=== PATIENT | female | born 1935 | race Caucasian/White ===

== ENCOUNTER 2018-02-19 20:11 | Inpatient (IN) | payer OTHER ==
[2018-02-19] MEDS ORDERED: HYDROmorphONE/DILAUDID 2 MG/ML INJ IVP ONE ×2 (20:45→21:53)
--- NOTE | 2018-02-19 21:04 | EDPHY ---
H & P Time Seen by Provider: 02/19/18 21:03 HPI/ROS: Chief complaint. Fall HPI. 82-year-old female drinking alcohol tonight tripped and fell on stairs injuring her right shoulder. Did not strike her head or lose consciousness. No neck pain. Increased pain with range of motion of the right shoulder. No previous injury to this area. Denies chest discomfort or trouble breathing. No abdominal pain. ROS Constitutional. no fever/chills, no weakness Eyes. no problems with vision ENT. no sore throat, no nasal drainage Cardiovascular. no chest pain Respiratory. no shortness of breath, no cough Abdominal. no abdominal pain, no nausea/vomiting, no diarrhea . no problems urinating MS. Right shoulder pain Skin. no rash Lymph. no swollen glands Neuro. no headache, no dizziness, no difficulty walking or with speech Past Medical/Surgical History: Hypertension, pelvic fracture, alcoholism, hypocalcemia, hyponatremia Social History: , nonsmoker, recent alcohol Smoking Status: Never smoked Physical Exam: General Appearance: Alert well-developed female moderate distress vital signs are stable Eyes: Pupils equal and round no pallor or injection. ENT, Mouth: Mucous membranes are moist. Respiratory: There are no retractions, lungs are clear to auscultation. Cardiovascular: Regular rate and rhythm. Gastrointestinal: Abdomen is soft and nontender, no masses, bowel sounds normal. Neurological: Awake and alert, sensory and motor exams grossly normal. Skin: Warm and dry, no rashes. Musculoskeletal: Neck is supple nontender. Extremities pain just below the right shoulder. No evidence for dislocation. Elbow wrist are normal. Distal motor vascular sensitivity is intact Psychiatric: Patient is oriented X 3, there is no agitation. Constitutional: Initial Vital Signs Temperature (C) 36.6 C 02/19/18 20:16 Heart Rate 96 02/19/18 20:16 Respiratory Rate 16 02/19/18 20:16 Blood Pressure 210/95 H 02/19/18 20:16 O2 Sat (%) 95 02/19/18 20:16 O2 Delivery Mode Room Air Allergies/Adverse Reactions: aspirin Allergy (Verified 02/19/18 20:15) Home Medications: Medication Instructions Recorded Hydrochlorothiazide [HCTZ (*)] 02/19/18 Metoprolol Succinate 02/19/18 Quinapril HCl [Accupril 5 mg] 02/19/18 Medical Decision Making - Diagnostics Imaging Results: Imaging Impressions Shoulder X-Ray 02/19/18 20:20 Impression: Impacted displaced right humeral head and neck fracture Procedures: IV normal saline. Dilaudid for pain. Coaptation splint and sling Patient is unable to ambulate get out of bed. She has many reasons that she feels she can't go home is such as multiple stairs at her residence and no one to care for her. She and I discussed possibility of needing to go to correction facility for rehab. I consulted and discussed case with Dr. Eduardo Adams, orthopedist Stool see the patient in the morning I consulted discussed case with Dr. Salazar, hospitalist who agrees to the admission ED Course/Re-evaluation: Patient remained stable. Patient and I discussed imaging study results, treatment plan including importance of follow-up and further evaluation. She expresses understanding and agreement Differential Diagnosis: I considered fracture and dislocation. Patient has a humeral head and neck fracture. Patient appears intoxicated. really she is not able to care for herself at home. - Data Points Laboratory Results: Laboratory Results 02/19/18 20:30 02/19/18 20:30 02/19/18 02/19/18 20:30 20:30 WBC 8.72 10^3/uL 10^3/uL (3.80-9.50) RBC 4.18 10^6/uL 10^6/uL (4.18-5.33) Hgb 14.1 g/dL g/dL (12.6-16.3) Hct 39.9 % % (38.0-47.0) MCV 95.5 fL fL (81.5-99.8) MCH 33.7 pg pg (27.9-34.1) MCHC 35.3 g/dL g/dL (32.4-36.7) RDW 12.1 % % (11.5-15.2) Plt Count 298 10^3/uL 10^3/uL (150-400) MPV 10.0 fL fL (8.7-11.7) Neut % (Auto) 39.9 % % (39.3-74.2) Lymph % (Auto) 43.5 % % (15.0-45.0) Cataño % (Auto) 12.2 % % (4.5-13.0) Eos % (Auto) 2.8 % % (0.6-7.6) Baso % (Auto) 1.1 % % (0.3-1.7) Nucleat RBC Rel Count 0.0 % % (0.0-0.2) Absolute Neuts (auto) 3.49 10^3/uL 10^3/uL (1.70-6.50) Absolute Lymphs (auto) 3.79 10^3/uL H 10^3/uL (1.00-3.00) Absolute Monos (auto) 1.06 10^3/uL H 10^3/uL (0.30-0.80) Absolute Eos (auto) 0.24 10^3/uL 10^3/uL (0.03-0.40) Absolute Basos (auto) 0.10 10^3/uL 10^3/uL (0.02-0.10) Absolute Nucleated RBC 0.00 10^3/uL 10^3/uL (0-0.01) Immature Gran % 0.5 % % (0.0-1.1) Immature Gran # 0.04 10^3/uL 10^3/uL (0.00-0.10) Sodium 127 mEq/L L mEq/L (135-145) Potassium 3.2 mEq/L L mEq/L (3.5-5.2) Chloride 86 mEq/L L mEq/L (97-110) Carbon Dioxide 24 mEq/l mEq/l (22-31) Anion Gap 17 mEq/L H mEq/L (8-16) BUN 10 mg/dL mg/dL (7-23) Creatinine 0.6 mg/dL mg/dL (0.6-1.0) Estimated GFR > 60 Glucose 111 mg/dL H mg/dL (70-100) Calcium 9.3 mg/dL mg/dL (8.5-10.4) Ethyl Alcohol 141 mg/dL H mg/dL (0-10) Medications Given: Discontinued Medications Hydromorphone HCl (Dilaudid) 1 mg IVP EDNOW ONE Stop: 02/19/18 20:46 Last Admin: 02/19/18 20:51 Dose: 1 mg Hydromorphone HCl (Dilaudid) 1 mg IVP EDNOW ONE Stop: 02/19/18 21:54 Last Admin: 02/19/18 22:11 Dose: 1 mg Departure - Departure Disposition: [facility] Clinical Impression: Humerus head fracture Qualifiers: Encounter type: initial encounter Fracture type: closed Laterality: right Qualified Code(s): S42.291A - Other displaced fracture of upper end of right humerus, initial encounter for closed fracture Condition: Fair
[2018-02-19] MEDS ORDERED: ACETAMINOPHEN 325 MG TAB PO PRN (23:01)
[2018-02-19] MEDS ORDERED: ONDANSETRON 4 MG/2 ML VIAL IVP PRN (23:01)
[2018-02-19 23:03] LABS: PLATELET COUNT 298 10^3/uL (150-400)
[2018-02-19] MEDS ORDERED: NS 1,000 ML IV SCH (23:15)
[2018-02-20 00:36] LABS: INR 0.96 (0.83-1.16)
[2018-02-20] MEDS: HYDROCODONE/APAP 5/325 TAB PO PRN ×4 (01:24→19:53)
[2018-02-20] MEDS: THIAMINE HCL 100 MG TAB PO SCH ×3 (01:33→11:10)
[2018-02-20] MEDS ORDERED: LORazepam 1 MG/0.5 ML UDSYR PO PRN (05:33)
[2018-02-20] MEDS ORDERED: PROTOCOL MAGNESIUM 1 DOSE IV PRN (05:40)
[2018-02-20] MEDS ORDERED: PROTOCOL POTASSIUM 1 DOSE MISC PRN (05:40)
[2018-02-20] MEDS ORDERED: PROTOCOL K PHOSPHATE 1 DOSE IV PRN (05:40)
--- NOTE | 2018-02-20 06:33 | GHP ---
[f rep st] HISTORY AND PHYSICAL DATE OF ADMISSION: 02/19/2018 SOURCE: Patient provides history, appears is a fair historian. Daughter at bedside and supplements detail. CHIEF COMPLAINT: Right arm pain and fall. HISTORY OF PRESENT ILLNESS: This is a very pleasant 82-year-old female, who goes by Cortney who presen ts to the emergency department in the evening following a mechanical fall. Patient reports that she was coming up the stairs from her basement into the kitchen when she had a mechanical fall, tripping on the top step which she states is just 0.25 inch taller than the rest of the stairs. The patient r eports that she fell forward hitting the left side of her head on the counter. She denies any loss o f consciousness. No headache. No acute changes in vision. Patient did have immediate right arm basim n and presented to the Emergency for further evaluation. Patient denies any numbness, tingling. No focal deficits, but she has severe sharp pains in her right arm with any kind of movement. The patient lives alone in her home. She is . She has good family support from her daughter who is at bedside. The patient also appeared to be having some increased work of breathing and had n oted 3-week history of worsening lower extremity edema bilaterally. She had also noted some abdomina l distention without any abdominal pain. Upon further review of history, it is noted patient has a h istory of alcohol dependence, drinking up to a bottle of wine per day. The patient states she has be en trying to cut back to 3/4 bottle per day and spreads it out over the whole core strength, sipping on a glass filled with ice. The patient does occasionally become tremulous in the mornings per the adams combs, but denies any history of DTs. The patient was admitted several years ago following similar mechanical fall by same mechanism with pubic rami fracture that required transitional care in [facility]. REVIEW OF SYSTEMS: GENERAL: No fevers, chills. SKIN: The patient does report abrasion to her left eye and moravian following her fall. No acute rashes or sores. ENT: No nasal discharge. No sore th roat. EYES: Patient without any acute changes in vision. She does have macular degeneration, worse on the right than the left. CARDIOVASCULAR: No chest pain or palpitations. RESPIRATORY: Positive for dyspnea. No orthopnea reported. No cough. GI: No nausea, vomiting, or abdominal pain. Torrey nt does report increasing abdominal girth. : No dysuria or hematuria. MUSCULOSKELETAL: Right ar m pain, severe, some arthritis. NEURO: The patient denies any numbness or tingling in her extremiti es. She denies any headache. PSYCH: The patient without any anxiety or depression. No SI or HI. Remainder of review of systems negative except as noted above. ALLERGIES: To aspirin. HOME MEDICATIONS: HCTZ, metoprolol-XL, Accupril. PAST MEDICAL HISTORY: Significant for benign essential hypertension, macular degeneration bilaterall y, diverticulosis, hypocalcemia, hyponatremia in 2016, history of pubic ramus fracture, alcohol depen dence with a previous history of uncomplicated withdrawal. No DTs. PAST SURGICAL HISTORY: Significant for intra-ocular injections. Otherwise, none. FAMILY HISTORY: Mother due to PE. Multiple family members with alcohol dependence. Diana t with 2 brothers due to sudden cardiac which patient assumes to be a stroke, who were in their 40s when this occurred. SOCIAL HISTORY: Patient lives alone. She does not smoke or use any illicit drugs. She does, howeve r drink wine and admits physical dependence. She drinks approximately previously a bottle per day sp read out over the course of the day and has cut back to 3/4 bottle per her report. Patient was kavon mplative, but not currently prepared to quit drinking. CORE STATUS: DNR DNI. PHYSICAL EXAM: VITAL SIGNS: Initial blood pressure 210/95, heart rate 96, respiratory rate 16, O2 s aturation is 95% on room air with temperature 36.6. Vitals currently available blood pressure 125/53 , heart rate of 94, up from 60 to 69, respiratory rate 17, O2 saturation 97% on 2 L by nasal cannula with a temperature 36.6. GENERAL: No acute distress, pleasant, obese, elderly female who appears yo home than stated age, is lying quietly in bed. While talking, she does have notable increased work of breathing, but is only with talking. She is able still to complete sentences. She does not have any resting increased work of breathing otherwise. Daughter is at bedside. HEAD: Normocephalic. S he has a contusion to her left moravian and also extending over the eyelid. EYES: Extraocular muscles are intact. Pupils equal, round, slightly decreased reactivity to light bilaterally, but symmetric. No scleral icterus or conjunctival injection. ENT: Mucous membranes appear moist. No nasal disch arge. No pharyngeal erythema. Dentition intact. NECK: Supple. Trachea midline. CARDIOVASCULAR: Regular rate and rhythm, with no murmurs, rubs, or gallops appreciated. No chest wall tenderness to palpation. RESPIRATORY: Again, increased work of breathing with talking diminished bibasilarly. N o wheezes or rhonchi. ABDOMEN: Obese, soft, nontender to palpation. : No Jones in place. No sheth prapubic tenderness to palpation. EXTREMITIES: Patient with 3+ pitting edema bilateral lower extrem ities. Limited pedal pulse assessment secondary to edema. NEURO: Cranial nerves 2-12 are intact sy mmetric bilaterally with limited exam of the right shoulder. She otherwise moves her lower extremiti es with generalized deconditioning and weakness. Her right arm is in a sling. NEURO: Cranial nerve s 2-12 intact symmetric bilaterally. She has sensation in her right hand. PSYCH: The patient does appears just slightly anxious, but she is very pleasant and cooperative otherwise. LABORATORY STUDIES: WBC is 8.72, H and H 14.1 and 39.9, MCV 95.5, platelet count is 298, no bands. PT is 13.0, INR 0.96, PTT is 28.6. Sodium is 127, potassium 3.2, chloride is 86, CO2 24, anion gap 17, BUN 10, creatinine 0.6. GFR grea ter than 60, glucose 110, calcium is 9.3, phosphorus 2.7, magnesium 1.4, total bilirubin is 1.5, conj ugated bilirubin 0.4, ALT is 41, AST is 42, alkaline phosphatase is 72, total protein 7.5, albumin is 4.2. TSH is 2.73. Alcohol level is 141. Shoulder x-ray image and report reviewed myself shows impacted displaced right humeral head and neck fracture. ASSESSMENT AND PLAN: A pleasant 82-year-old female with past medical history significant for hyperte nsion, obesity, alcohol dependence, presents to Emergency Department following a mechanical fall with right arm pain. 1. Right humeral head fractures, displaced. Dr. Peña with Orthopedic Surgery was consulted from the Emergency Department. Will plan to see the patient this morning. I have not made her n.p.o. at this point, as she does have some electrolyte derangements and I do not suspect that she will need a ny immediate intervention. Will await his recommendations. She is currently in a sling. She has be en receiving [place] and Tylenol p.r.n. for her pain, but this has appeared to be inadequate and patien t complaining of severe pain. We will increase to addition of Dilaudid for breakthrough pain. Loraz epam has been ordered with her history of alcohol dependence in mind, but this may also assist with s ome of her spasming pain. She is on a pulse ox and will need to monitor her closely. 2. Fall with head injury. Patient did not report her head injury initially to the ER. At this poin t neurologic exam is not significantly focal, but will monitor her closely and have low threshold for CT scan. I did discuss with the patient obtaining this in the morning. However, she adamantly refu sed complaining that her right arm pain is so severe she does not want to move. She is agreeable to scan if her mentation or neurologic status does change. 3. Dyspnea. The patient with obvious increased work of breathing during the interview, although she does deny any shortness of breath. She does have 3+ pitting edema as well as some signs of ascites on abdominal exam. She does have a history of chronic alcohol dependence with wine, so it is possibl e also that this could be related to edema and will also consider chest x-ray, but patient has not humphreys d any episodes of hypoxia. 4. Edema as noted above. 5. Benign essential hypertension. Blood pressures at this time are acceptable and within normal ran ge. For now, given the patient will be receiving Ativan and narcotics will hold off on her antihyper tensive for now. We may need to consider addition of Lasix or spironolactone pending further evaluat ion of suspected cirrhosis. 6. Obesity with a body mass index of 34.5. Monitor in's and out's given patient's edema. 7. Macular degeneration. Fall precautions. 8. Hyponatremia with hypochloridemia and multiple other electrolyte disturbances are likely related to patient's alcohol dependence. Plan to replace her sodium, potassium, magnesium, monitor phosphoru s. 9. Alcohol dependence. 10. Fluid, electrolyte, nutrition. Patient is tolerating oral intake adequately. We will not add a ny intravenous fluids, particularly in setting of increased lower extremity edema. Electrolyte repla cement as noted above. Cardiac diet in place. 11. Prophylaxis. SCDs. Holding anticoagulation pending surgical evaluation. 12. Core status is DNR DNI. 13. Disposition. The patient has been admitted to observation at this time. Pending further evalua tion of patient's edema and dyspnea she may require additional hospital stay and workup. Also pendin g Orthopedic recommendations regarding her right shoulder. May also need to assess length of patient 's hospital stay. Will await recommendations. /[id number]/MODL
[2018-02-20] MEDS ORDERED: MAGNESIUM SULF 2 GM/WATER 50 ML IV ONE (07:49)
[2018-02-20] MEDS ORDERED: ENOXAPARIN 40 MG/0.4 ML SYR SC SCH (09:00)
[2018-02-20] MEDS ORDERED: POTASSIUM CL 10 MEQ TAB PO ONE (09:01)
[2018-02-20] MEDS: FOLIC ACID 1 MG TAB PO SCH ×2 (09:08→11:10)
[2018-02-20] MEDS: MULTIVITAMINS 1 EACH TAB PO SCH ×2 (09:08→11:10)
[2018-02-20] MEDS ORDERED: POTASSIUM Cl (KCl) 100 ML IV SCH (09:15)
[2018-02-20] MEDS: POTASSIUM Cl (KCl) 10 MEQ in NS 100 ML IV SCH ×3 (09:29→13:24)
--- NOTE | 2018-02-20 09:58 | GCON ---
[f rep st] CONSULTATION CHIEF COMPLAINT: Status post fall to right lower extremity. HISTORY OF PRESENT ILLNESS: Patient is a pleasant 82-year-old female who presented to the ED yesterday evening, 02/19/2018, after falling while coming up the stairs from her basement into the kitchen. She fell forward, hitting the left side of her head on the counter. She denies any loss of consciousness or headache. Patient does have a history of chronic blurred vision and states there is no change in that vision. She presented to the ED with also concerns of right arm pain, which is what we have been consulted on. She had difficulty moving the right upper extremity at the time of admission. X-rays were performed, which showed a humeral neck fracture, and she was placed in a sling and made nonweightbearing to the affected area. She currently denies any abnormal numbness, tingling, change in heat or color to this extremity, loss of distal range of motion. Patient has severe pain to the right shoulder and has been compliant in her sling. In the past month, patient has had an approximate 3-week history of worsening bilateral lower extremity edema, which her daughter has stated is due to a medication which she is on. The daughter states that her mother has been decreasing this medication with the hopes of decreased edema, but she does also note some abdominal distention without any pain during today's visit. PAST MEDICAL HISTORY: Pertinent for benign essential hypertension, macular degeneration bilaterally, diverticulosis, hypocalcemia, hyponatremia in 2016, history of pubic rami fracture with a similar mechanism of fall which resulted in her being in a retirement facility, history of alcohol dependence with a previous history of uncomplicated withdrawal. No history of delirium tremens. PAST SURGICAL HISTORY: Pertinent for intraocular injections. ALLERGIES: Aspirin. MEDICATIONS: Home medications: Hydrochlorothiazide, metoprolol XL, and Accupril. SOCIAL HISTORY: Patient is a regular drinker with a history of alcohol dependence, drinking up to a bottle of wine per day. According to she and her daughter, she has been trying to cut back to 3/4 of a bottle per day. Patient is . Lives alone at home. She does have good family support from her daughter, who is at the bedside this morning. REVIEW OF SYSTEMS: Otherwise, 10-point review of systems is negative except for as stated above. FAMILY HISTORY: Mother due to pulmonary embolism. Multiple family members with alcohol dependence. History of cardiovascular disease with brothers who were in their 40s when this occurred. PHYSICAL EXAMINATION: GENERAL: Patient is alert and oriented, able to respond appropriately to questions, moderate distress due to severe pain in her shoulder. HEENT: She has ecchymosis noted over her left superior orbit with no evidence of abnormal bleeding, oozing, discharge, change in heat or color around the area. EOMs intact. PERRLA. Moist buccal mucosa. Patent nares. Hearing intact. NECK: Soft and supple. No lymphadenopathy. Negative Lhermitte. Negative Spurling. CV: Regular rate and rhythm. LUNGS: Nonlabored breathing. No diaphoresis. EXTREMITIES: Focalized exam of bilateral upper extremities - Right shoulder in sling. TTP over proximal humerus with edema. No erythema, ecchymosis, or calor noted. Comp's soft. Limited AROM of right shoulder due to severe pain to the patient. Unable to fully assess distal strength of the patient due to severe distress, is able to actively flex/extend her right elbow and wrist. DNVI bilaterally in her upper extremities, including full Axillary motor/sensory function. Able to make a full fist bilaterally. Gross sensation intact bilaterally in her upper extremities with no focal deficits and brisk cap refill noted. 3+ nonpitting edema bilaterally in her lower extremities with calves soft and supple and nontender to palpation with negative bilateral Enio' s. X-rays: 3 views of her right shoulder show a comminuted and displaced right humeral neck fracture with mild angulation. ASSESSMENT: Closed, displaced and angulated, right proximal humerus fracture. PLAN: We continue to recommend patient remain in sling, NWB RUE, non-op care rec'd at this time. F/U in clinic in 1 week for repeat XRs and exam. Pain medications prn for symptoms. No smoking, avoid NSAIDs. DVT prophylaxis: continue plan per hospitalists. We will continue to monitor the patient and appreciate the consultation; please call with any questions. She was seen/discussed with and note edited by Dr. Peña. /[id number]/MODL MTDD
[2018-02-20] MEDS: HYDROmorphONE/DILAUDID 2 MG/ML INJ IVP PRN ×3 (11:09→19:49)
[2018-02-20] MEDS ORDERED: QUINAPRIL HCL 20 MG PO SCH (11:45)
--- NOTE | 2018-02-20 11:45 | HOSPPROG ---
Hospitalist Progress Note Assessment/Plan: Humeral head fracture - appreciate ortho consult, no operative intervention planned. -pain control, requiring IV dilaudid -cont ortho splint -PT/OT to assess mobility issues -outpt f/u with ortho in 2 weeks AHRF - dyspnea and hypoxemia this am -check CXR, bnp -low threshold for ABG if tachypnea persists Closed head injury - check head CT now given age and etoh hx Etoh dependence - sounds like she drinks 1.7 L of wine per day and she has no plan to quit drinking -give wine BID to prevent w/d, may require TID Hypertension - cont Metoprolol, Quinapril, hold HCTZ Hyponatremia - improved with NS, cont gentle IV hydration, follow -hold HCTZ for now Hypomagnesemia - replacement protocol ordered DVT PPLX - defer pharm until CT done, SCD's for now Dispo - change to inpt for further management of acute fracture including acute PT/OT and further evaluation of hypoxemia High risk for worsening medical comorbidities Subjective: Pt c/o severe pain in her right arm. Denies CP. She is tachypneic , possibly pain response. No fevers. She drinks 1.7 L bottle of wine daily, last drink ~6pm last night. No prior seizures. Objective: Vital Signs Temp Pulse Resp BP Pulse Ox 36.9 C 89 20 158/73 H 98 02/20/18 08:00 02/20/18 11:26 02/20/18 11:26 02/20/18 11:26 02/20/18 11:26 Laboratory Results 02/20/18 05:47 02/19/18 02/20/18 02/21/18 05:59 05:59 05:59 Intake Total 600 Output Total 250 350 Balance 350 -350 PT 13.0 SEC (12.0-15.0) 02/19/18 21:00 INR 0.96 (0.83-1.16) 02/19/18 21:00 - Physical Exam Constitutional: uncomfortable Eyes: PERRL Ears, Nose, Mouth, Throat: moist mucous membranes Cardiovascular: tachycardia Respiratory: no respiratory distress, reduced air movement Gastrointestinal: normoactive bowel sounds, soft, non-tender abdomen Skin: warm Musculoskeletal: other (right arm immobilized, +radial pulses, ext warm, well perfused) Neurologic: AAOx3 Psychiatric: interacting appropriately ICD10 Worksheet Patient Problems: Problems Problem Status Onset Humerus head fracture Acute Altered mental status Acute Expressive aphasia Acute Hyponatremia Acute Hypertension Chronic Pubic ramus fracture Chronic
[2018-02-20] MEDS ORDERED: NS W/ 20 KCl/L 1,000 ML IV SCH (12:00)
[2018-02-20] MEDS: METOPROLOL TARTRATE 100 MG TAB PO SCH (12:59)
[2018-02-20] MEDS: LISINOPRIL 20 MG TAB PO SCH (12:59)
--- NOTE | 2018-02-20 14:53 | PDMN ---
Medical Necessity Medical necessity: dyspnea and hypoxemia this am. c/o pain in arm this am., hx ETOH abuse: further PT, OT, CT of head ( pt hit head when she fell) - monitoring of poss W/D > 2 midnights of further monitoring, eval and tx needed. Pt receiving IV fluids, IV pain,
--- NOTE | 2018-02-20 16:35 | ASMTCMCOM ---
CM Note CM Note Notes: Pt in for humerus fracture after a fall at home. Pt also hit her head. Pt had been drinking when she fell, H&P indicates pt drinks a bottle of wine daily. Pt currently has no interest in quitting alcohol and is receiving wine here, CIWA ordered. OT/PT/ACIDIZER HELPER recs pending. Attempted to meet w pt but she was sleeping, pt dghtr in room. CM to follow tomorrow. Date Signed: 02/20/2018 04:34 PM Electronically Signed By:ASHISH Perdomo
--- NOTE | 2018-02-20 17:00 | ECHO ---
[email or web address] [address] [address] Main: [phone] Fax: Transthoracic Echocardiogram Name: SHAWNA LAWRENCE MR#: [id number] Study Date: 02/20/2018 Study Time: 01:37 PM Date of : 1935 Age: 82 year(s) Height: 154.9 cm (61 in.) Weight: 82.55 kg (182 lb.) BSA: 1.81 m2 Gender: Female Examination: Echo Indication: Image Quality: Adequate Contrast: Requested by: Elsi Howard BP: 158 mmHg/73 mmHg Heart Rate: Rhythm: Indication: Procedure Staff Teacher Private: Elba Luis [facility] Reading Physician: Claude Hernandez MD Requesting Provider: Conclusions: Normal size left ventricle. No LV hypertrophy. Normal global systolic LV function. The ejection fraction is visually estimated to be 60 %. Grade 1 diastolic dysfunction (abnormal relaxation). Trivial mitral valve regurgitation. The aortic valve is normal in appearance and function. Normal size ascending aorta measuring 3.3 cm. No pleural effusion. Measurements: Chambers Valvular Assessment AV/MV Valvular Assessment TV/PV Normal Normal Normal Name Value Range Name Value Range Name Value Range Ao Duyen (2D): 2.5 cm (1.4 cm-2.6 AV Vmax: 1.74 m/s (1 m/s-1.7 PV Vmax: 1.13 m/s (0.6 m/s-0.9 cm) m/s) m/s) IVSd (2D): 1.1 cm (0.6 cm-1.1 AV maxP mmHg ( - ) PV PGmax: 5 mmHg ( - ) cm) AV meanP mmHg ( - ) LVDd (2D): 4.2 cm (3.9 cm-5.3 LVOT Vmax: 1.18 m/s (0.7 m/s-1.1 cm) m/s) LVDs (2D): 2.8 cm (2.1 cm-4 BREE (Vmax): 1.9 cm2 ( - ) cm) BREE (VTI): 2.2 cm ( - ) LVPWd (2D): 1.1 cm ( - ) MV E Vmax: 0.66 m/s ( - ) LVOTd 1.9 cm 1.9 cm mm MV A Vmax: 1.06 m/s ( - ) LVEF (BP): 66 % (>=55 %) MV E/A: 0.62 ( - ) Visual EF: 60 % MV PHT: 0.098 s ( - ) RVDd(2D): 3.3 cm (1.9 cm-3.8 MVA (PHT): 2.2 s ( - ) cmmm) Continued Measurements: Patient: SHAWNA LAWRENCE Study Date: 02/20/2018 Page 1 of 2 01:37 PM Chambers Valvular Assessment AV/MV Valvular Assessment TV/PV Name Value Name Value Name Value LADs: 3.8 cm MV DecTime: 310 m/s CVP (est.): 5 mmHg LADs Lon.2 cm MV E/E' Septal: 12.80 LA Area: 17.2 cm2 MV E/E' Lateral: 10.00 LA Volume: 47 ml LA Volume Index: 26.0 ml/m2 RA Area: 16.5 cm2 Additional Vessels Name Value Ao Ascendin.3 cm Findings: Left Ventricle: Normal size left ventricle. No LV hypertrophy. Normal global systolic LV function. The ejection fraction is visually estimated to be 60 %. No regional wall motion abnormality. Grade 1 diastolic dysfunction (abnormal relaxation). Right Ventricle: Normal size right ventricle. Normal RV function. Left Atrium: The left atrium is normal in size. Right Atrium: The right atrium is normal in size. Mitral Valve: The mitral valve is normal in appearance and function. Trivial mitral valve regurgitation. No mitral stenosis is present. Aortic Valve: The aortic valve is normal in appearance and function. No aortic valve stenosis is present. There is no aortic valve regurgitation. Tricuspid Valve: The tricuspid valve is normal in appearance and function. There is no significant tricuspid valve regurgitation. Pulmonic Valve: The pulmonic valve is normal in appearance and function. There is no pulmonic regurgitation seen. Aorta: The aorta is normal. Normal size aortic root measuring 2.5 cm. Normal size ascending aorta measuring 3.3 cm. IVC: IVC not well seen . Pericardium: No pericardial effusion. No pleural effusion. Exam Comments: Patient unable to lay on left side due to right arm fracture, unable to move at all. (No Signature Object) Patient: SHAWNA LAWRENCE Study Date: 02/20/2018 Page 2 of 2 01:37 PM [id number]
[2018-02-20] MEDS ORDERED: hydrALAZINE 25 MG TAB PO PRN (17:21)
[2018-02-20] MEDS ORDERED: IOPAMIDOL (ISOVUE 370) 100 ML BTL IV ONE (17:22)
[2018-02-20] MEDS ORDERED: WHITE WINE 120 ML BOTTLE PO SCH (18:00)
--- NOTE | 2018-02-20 19:12 | PDGENHP ---
History and Physical - Chief Complaint fall - History of Present Illness 82yo F admitted last night after sustaining a fall from standing. Briefly, patient states that she was walking upstairs carrying a bag in her L hand and a jar of jelly in her R. She reached the top of the stairs and lost her balance, falling forward onto her right side, striking her L face on the way down. She denies LOC, but at the time endorsed excruciating RUE pain. Her daughter, whom she lives with, was at home and immediately responded. EMS was called and she was subsequently brought here for evaluation. Injuries identified at the time of admission were a proximarl R humerus fx and a L eye hematoma. She was admitted to the medical service and has had evaluation per orthopedics. On my examination at this time, she c/o R shoulder pain but states that it is now better controlled than previous. She has no other complaints and has been OOB walking albeit with a lot of trouble 2/2 RUE pain. History Information - Allergies/Home Medication List Allergies/Adverse Reactions: aspirin Allergy (Verified 02/19/18 20:15) Home Medications: C/E/Zn/Cu/OM3/DHA/EPA/LUT/ZEAX [Preservision Areds 2 Softgel] 1 each PO BID [Last Taken Unknown] Hydrochlorothiazide [HCTZ (*)] 25 mg PO DAILY 02/20/18 [Last Taken Unknown] Metoprolol Tartrate [Lopressor 100 mg (*)] 100 mg PO DAILY 02/20/18 [Last Taken Unknown] Quinapril HCl [Accupril 40 MG] 40 mg PO DAILY 02/20/18 [Last Taken Unknown] I have personally reviewed and updated: family history, medical history, social history, surgical history Past Medical History: HTN, macular degeneration, diverticulosis, hypocalcemia, hyponatremia, EtOH abuse, Hx of pelvic fx 3yrs ago s/p fall. - Surgical History Reports: no pertinent surgical hx - Family History Additional family history: Hx of EtOH - Social History Smoking Status: Never smoked Alcohol Use: Heavy Additional social history: lives with daughter and BABEY Review of Systems Review of Systems: ROS: 10pt was reviewed & negative except for what was stated in HPI & below Physical Exam Physical Exam: Temp Pulse Resp BP Pulse Ox 36.9 C 76 18 151/82 H 100 02/20/18 16:00 02/20/18 17:34 02/20/18 17:34 02/20/18 17:34 02/20/18 17:34 O2 (L/minute) 2 Constitutional: no apparent distress, appears nourished, uncomfortable Eyes: PERRL, anicteric sclera, EOMI Ears, Nose, Mouth, Throat: hearing normal, ears appear normal, no oral mucosal ulcers, poor dentition, dry mucous membranes Cardiovascular: regular rate and rhythym, no murmur, rub, or gallop, No edema Respiratory: no respiratory distress, no rales or rhonchi, clear to auscultation , other (no crepitus, no step offs or pain to chest palpation. ) Gastrointestinal: normoactive bowel sounds, soft, non-tender abdomen, no palpable masses Genitourinary: no bladder fullness, no bladder tenderness Skin: warm, normal color, no rashes or abrasions, no fluctuance, no induration, No mottled Musculoskeletal: full muscle strength, no muscle tenderness, normal joint ROM, no joint effusions Neurologic: AAOx3, sensation intact bilaterally, No weakness, No numbness Psychiatric: interacting appropriately, not anxious, not encephalopathic, thought process linear, other (no signs of w/d at this time) Lymph, Heme, Immunologic: no cervical LAD, no supraclavicular LAD Lab Data & Imaging Review 02/19/18 20:30 02/20/18 05:47 WBC 8.72 10^3/uL (3.80-9.50) 02/19/18 20:30 RBC 4.18 10^6/uL (4.18-5.33) 02/19/18 20:30 Hgb 14.1 g/dL (12.6-16.3) 02/19/18 20:30 Hct 39.9 % (38.0-47.0) 02/19/18 20:30 MCV 95.5 fL (81.5-99.8) 02/19/18 20:30 MCH 33.7 pg (27.9-34.1) 02/19/18 20:30 MCHC 35.3 g/dL (32.4-36.7) 02/19/18 20:30 RDW 12.1 % (11.5-15.2) 02/19/18 20:30 Plt Count 298 10^3/uL (150-400) 02/19/18 20:30 MPV 10.0 fL (8.7-11.7) 02/19/18 20:30 Neut % (Auto) 39.9 % (39.3-74.2) 02/19/18 20:30 Lymph % (Auto) 43.5 % (15.0-45.0) 02/19/18 20:30 [place] % (Auto) 12.2 % (4.5-13.0) 02/19/18 20:30 Eos % (Auto) 2.8 % (0.6-7.6) 02/19/18 20:30 Baso % (Auto) 1.1 % (0.3-1.7) 02/19/18 20:30 Nucleat RBC Rel Count 0.0 % (0.0-0.2) 02/19/18 20:30 Absolute Neuts (auto) 3.49 10^3/uL (1.70-6.50) 02/19/18 20:30 Absolute Lymphs (auto) 3.79 10^3/uL (1.00-3.00) H 02/19/18 20:30 Absolute Monos (auto) 1.06 10^3/uL (0.30-0.80) H 02/19/18 20:30 Absolute Eos (auto) 0.24 10^3/uL (0.03-0.40) 02/19/18 20:30 Absolute Basos (auto) 0.10 10^3/uL (0.02-0.10) 02/19/18 20:30 Absolute Nucleated RBC 0.00 10^3/uL (0-0.01) 02/19/18 20:30 Immature Gran % 0.5 % (0.0-1.1) 02/19/18 20:30 Immature Gran # 0.04 10^3/uL (0.00-0.10) 02/19/18 20:30 PT 13.0 SEC (12.0-15.0) 02/19/18 21:00 INR 0.96 (0.83-1.16) 02/19/18 21:00 APTT 28.6 SEC (23.0-38.0) 02/19/18 21:00 D-Dimer 1.28 ug/mLFEU (0.00-0.50) H 02/20/18 16:35 Sodium 130 mEq/L (135-145) L 02/20/18 05:47 Potassium 3.6 mEq/L (3.5-5.2) 02/20/18 05:47 Chloride 93 mEq/L (97-110) L 02/20/18 05:47 Carbon Dioxide 24 mEq/l (22-31) 02/20/18 05:47 Anion Gap 13 mEq/L (8-16) 02/20/18 05:47 BUN 12 mg/dL (7-23) 02/20/18 05:47 Creatinine 0.6 mg/dL (0.6-1.0) 02/20/18 05:47 Estimated GFR > 60 02/20/18 05:47 Glucose 121 mg/dL (70-100) H 02/20/18 05:47 Calcium 8.8 mg/dL (8.5-10.4) 02/20/18 05:47 Phosphorus 4.2 mg/dL (2.5-4.5) D 02/20/18 05:47 Magnesium 1.1 mg/dL (1.6-2.3) L 02/20/18 05:47 Total Bilirubin 1.1 mg/dL (0.1-1.4) D 02/20/18 05:47 Conjugated Bilirubin 0.4 mg/dL (0.0-0.5) 02/19/18 21:00 Unconjugated Bilirubin 0.1 mg/dL (0.0-1.1) 02/19/18 21:00 AST 47 IU/L (14-46) H 02/20/18 05:47 ALT 43 IU/L (9-52) 02/20/18 05:47 Alkaline Phosphatase 65 IU/L (38-126) 02/20/18 05:47 Total Protein 6.7 g/dL (6.3-8.2) 02/20/18 05:47 Albumin 3.7 g/dL (3.5-5.0) 02/20/18 05:47 Procalcitonin 0.07 ng/mL (0.02-0.10) 02/20/18 16:35 TSH 2.730 uIU/mL (0.465-4.680) 02/19/18 21:00 Ethyl Alcohol 141 mg/dL (0-10) H 02/19/18 20:30 Visualized and Interpreted imaging results: Yes Interpretation: CXR, CTA chest: no fx, no effusion or hemopneumothorax Assessment & Plan Assessment: Humerus head fracture (Acute) Plan: 82yo F s/p [facility] fall c R proximal humerus fx (sling), EtOH, multiple chronic medical issues - Was asked to evaluate the patient given her fall and admission. Other than the humerus fx which has been evaluated by orthopedics I dont see any other acute injuries at this time. I reviewed her CTA with her; showing her that there are no acute injuries to the chest wall or underlying lung. In addition, there was no evidence of PE on the scan. - CT head was recommended, patient declined. I discussed the importance of this with her especially in light of wanting ot start at minimum prohpylactic LMWH, given her hesitance and lack of acute findings its probably ok to start tomorrow - Discussed the importance of IS and ambulating. She has multiple medical issues which I think put her at increased risk for pna even despite no evidence for rib fx. - PT/OT - sling per ortho - Will follow
[2018-02-20] MEDS ORDERED: DIAZEPAM 5 MG TAB PO PRN (19:18)
[2018-02-20] MEDS: WHITE WINE 120 ML BOTTLE PO SCH (23:38)
[2018-02-20] MEDS: IBUPROFEN 600 MG TAB PO SCH (23:38)
[2018-02-21] MEDS: IBUPROFEN 600 MG TAB PO SCH ×4 (04:51→21:18)
[2018-02-21] MEDS: HYDROmorphONE/DILAUDID 2 MG/ML INJ IVP PRN (04:51)
[2018-02-21] MEDS: THIAMINE HCL 100 MG TAB PO SCH (08:02)
[2018-02-21] MEDS: FOLIC ACID 1 MG TAB PO SCH (08:02)
[2018-02-21] MEDS: MULTIVITAMINS 1 EACH TAB PO SCH (08:02)
[2018-02-21] MEDS: LISINOPRIL 20 MG TAB PO SCH (08:02)
[2018-02-21] MEDS: METOPROLOL TARTRATE 100 MG TAB PO SCH (08:02)
[2018-02-21] MEDS: HYDROCODONE/APAP 5/325 TAB PO PRN ×2 (08:02→12:16)
[2018-02-21] MEDS: WHITE WINE 120 ML BOTTLE PO SCH ×2 (09:20→22:01)
--- NOTE | 2018-02-21 09:55 | SOAPPROG ---
SOAP Progress Note Assessment/Plan: Assessment: s/p non-op right humeral head fracture following fall: doing well in sling, pain well controlled by pain meds. Plan: -NWB to RUE in sling. Continue PT/OT for right hand/elbow ROM. No lifting >2lbs. -DVT: continue plan per hospitalists. Recommend SCDs and IS. -Patient being managed for complex medical history by hospitalists; continue medical management per their plan. -F/U with our office in 2 weeks or prn additional questions/concerns which may arise. Watch for worsening numbness/tingling, change in ROM or strength and to seek immediate medical attn if seen. Patient d/w Dr. Peña. 02/21/18 09:53 Subjective: Daughter in room with her, she is able to respond to questions appropriately, seems more alert than yesterday. Denies abnormal numbness/tingling, change in heat/color of extremity, cough, congestion, chest pain, SOB, dyspnea, claudication, worsening pain, change in distal ROM. Has been compliant in NWB to right UE and sling. Objective: Vital Signs Temp Pulse Resp BP Pulse Ox 37.3 C 82 18 128/59 H 97 02/21/18 08:00 02/21/18 08:02 02/21/18 08:00 02/21/18 08:02 02/21/18 08:00 Laboratory Results 02/21/18 04:43 02/20/18 02/21/18 02/22/18 05:59 05:59 05:59 Intake Total 600 1750 Output Total 250 700 Balance 350 1050 PT 13.0 SEC (12.0-15.0) 02/19/18 21:00 INR 0.96 (0.83-1.16) 02/19/18 21:00 A/o. Able to respond appropriately to questions. NAD. Non-labored breathing. No diaphoresis. M/S: Right shoulder in sling bandaged with compartments soft and no erythema, edema or calor noted around wound site or in b/l lower extremities. DNVI b/l with gross sensation intact and no focal deficits. Brisk cap refill b/l in upper extremities. AROM: good distal ROM in wrist and hand, unable to make full fist due to severe pain to patient, but extensor and flexor mechanisms all grossly intact.Negative b/l Homans. Calves soft/supple and NTTP b/l. 3+ non- pitting edema present b/l in lower extremities with SCDs in place. ICD10 Worksheet Patient Problems: Problems Problem Status Onset Humerus head fracture Acute Altered mental status Acute Expressive aphasia Acute Hyponatremia Acute Hypertension Chronic Pubic ramus fracture Chronic
--- NOTE | 2018-02-21 10:54 | SOAPPROG ---
KELLE Progress Note Assessment/Plan: Assessment: 82 y/o F s/p mechanical fall with right humeral head fx and left periorbital contusion 02/20 S: Upset that she got her pain medication late this am. Severe pain in R shoulder O: Alert Afebrile RRR No increased WOB RUE in sling Left eye contusion Plan: Seen with Dr. Hall. Fx is non-operative, per ortho. 02/21/18 10:51 Objective: Vital Signs Temp Pulse Resp BP Pulse Ox 37.3 C 82 18 128/59 H 97 02/21/18 08:00 02/21/18 08:02 02/21/18 08:00 02/21/18 08:02 02/21/18 08:00 Laboratory Results 02/21/18 04:43 02/20/18 02/21/18 02/22/18 05:59 05:59 05:59 Intake Total 600 1750 Output Total 250 700 Balance 350 1050 PT 13.0 SEC (12.0-15.0) 02/19/18 21:00 INR 0.96 (0.83-1.16) 02/19/18 21:00 ICD10 Worksheet Patient Problems: Problems Problem Status Onset Humerus head fracture Acute Altered mental status Acute Expressive aphasia Acute Hyponatremia Acute Hypertension Chronic Pubic ramus fracture Chronic
--- NOTE | 2018-02-21 14:43 | HOSPPROG ---
Hospitalist Progress Note Assessment/Plan: Humeral head fracture - appreciate ortho consult, no operative intervention planned. -pain control with scheduled tylenol and ibuprofen, prn oxycodone and IV dilaudid as last resort -cont ortho splint -PT/OT to assess mobility issues -outpt f/u with ortho in 2 weeks Acute right 4th and 6th rib fractures - seen on CT -IS to improve lung expansion -pain control -trauma consulted AHRF - likely 2/2 rib fractures, CTA neg for PE -wean O2 as able Closed head injury - Occurred with fall. Pt repeatedly refused head CT, discussed risks Etoh dependence - sounds like she drinks 1.7 L of wine per day and she has no plan to quit drinking -cont wine BID to prevent w/d Hypertension - cont Metoprolol, Quinapril, hold HCTZ Hyponatremia - improved with NS, cont gentle IV hydration, follow -hold HCTZ for now Hypomagnesemia - replacement protocol ordered DVT PPLX - Lovenox Dispo - cont inpt for pain control, acute PT/OT, will likely require SNF Subjective: Pt doing better today, pain occasionally spikes, but overall better control. No CP, SOB or cough. Denies rib pain, pain is mostly in right arm. No fevers/chills. Poor mobility. Objective: Vital Signs Temp Pulse Resp BP Pulse Ox 36.8 C 75 18 143/73 H 94 02/21/18 12:00 02/21/18 12:00 02/21/18 12:00 02/21/18 12:00 02/21/18 12:00 Laboratory Results 02/21/18 04:43 02/20/18 02/21/18 02/22/18 05:59 05:59 05:59 Intake Total 600 1750 Output Total 250 700 Balance 350 1050 PT 13.0 SEC (12.0-15.0) 02/19/18 21:00 INR 0.96 (0.83-1.16) 02/19/18 21:00 - Physical Exam Constitutional: no apparent distress Eyes: PERRL Ears, Nose, Mouth, Throat: moist mucous membranes Cardiovascular: regular rate and rhythym Respiratory: no respiratory distress, reduced air movement, inspiratory crackles Gastrointestinal: normoactive bowel sounds, soft, non-tender abdomen Skin: warm Musculoskeletal: generalized weakness, other (RUE distal pulse 2+, ext warm) Neurologic: AAOx3 Psychiatric: interacting appropriately ICD10 Worksheet Patient Problems: Problems Problem Status Onset Humerus head fracture Acute Altered mental status Acute Expressive aphasia Acute Hyponatremia Acute Hypertension Chronic Pubic ramus fracture Chronic
--- NOTE | 2018-02-21 14:49 | ASMTCMCOM ---
CM Note CM Note Notes: OT/PT rec SNF, pt agreeable and [facility] This CM advised some SNFs may not be able to accommodate pt need for alcohol. [facility] can accept pt who will have to have family bring her own wine in. [place] is assessing. CM to follow. Date Signed: 02/21/2018 02:48 PM Electronically Signed By:ASHISH Perdomo
[2018-02-21] MEDS: ACETAMINOPHEN 500 MG TAB PO SCH (15:06)
[2018-02-21] MEDS: ENOXAPARIN 40 MG/0.4 ML SYR SC SCH (17:08)
[2018-02-21] MEDS: oxyCODONE IR 5 MG TAB PO PRN (18:41)
[2018-02-22] MEDS: ACETAMINOPHEN 500 MG TAB PO SCH ×4 (00:13→22:31)
[2018-02-22] MEDS: oxyCODONE IR 5 MG TAB PO PRN ×4 (06:22→22:31)
[2018-02-22] MEDS: IBUPROFEN 600 MG TAB PO SCH ×3 (06:22→21:09)
--- NOTE | 2018-02-22 09:54 | SOAPPROG ---
SOAP Progress Note Assessment/Plan: Assessment: non-op right humeral head fracture following fall: doing well in sling, pain well controlled by pain meds. Plan: NWB to RUE in sling Continue PT/OT for right hand/elbow ROM. No lifting >2lbs. DVT: continue plan per hospitalists Recommend SCDs/TEDs F/U with our office Dr. Peña in 2 weeks or prn additional questions/ concerns which may arise. Watch for worsening numbness/tingling, change in ROM or strength and to seek immediate medical attn if seen. Ortho Stable Subjective: Patient is up and sitting in the chair. She states her right shoulder is less painful today. She has the sling in place. Objective: Vital Signs Temp Pulse Resp BP Pulse Ox 37.4 C 71 14 131/69 H 97 02/22/18 08:00 02/22/18 08:00 02/22/18 08:00 02/22/18 08:00 02/22/18 08:00 Laboratory Results 02/22/18 05:08 02/21/18 02/22/18 02/23/18 05:59 05:59 05:59 Intake Total 1750 1500 Output Total 700 Balance 1050 1500 PT 13.0 SEC (12.0-15.0) 02/19/18 21:00 INR 0.96 (0.83-1.16) 02/19/18 21:00 Physical exam of the RUE: sling is in place. There is tenderness to palpation over the humeral head. Patient is able to move all finger. Normal sensation to light touch in the RUE. Distal pulse present in the RUE. ICD10 Worksheet Patient Problems: Problems Problem Status Onset Humerus head fracture Acute Altered mental status Acute Expressive aphasia Acute Hyponatremia Acute Hypertension Chronic Pubic ramus fracture Chronic
[2018-02-22] MEDS: ENOXAPARIN 40 MG/0.4 ML SYR SC SCH (09:56)
[2018-02-22] MEDS: THIAMINE HCL 100 MG TAB PO SCH (09:56)
[2018-02-22] MEDS: FOLIC ACID 1 MG TAB PO SCH (09:56)
[2018-02-22] MEDS: MULTIVITAMINS 1 EACH TAB PO SCH (09:56)
[2018-02-22] MEDS: METOPROLOL TARTRATE 100 MG TAB PO SCH (09:57)
[2018-02-22] MEDS: LISINOPRIL 20 MG TAB PO SCH (09:57)
[2018-02-22] MEDS ORDERED: POTASSIUM CL 10 MEQ TAB PO ONE (10:53)
[2018-02-22] MEDS: WHITE WINE 120 ML BOTTLE PO SCH ×2 (11:58→18:00)
--- NOTE | 2018-02-22 12:14 | PDIAF ---
- Diagnosis Diagnosis: Humerus fracture, rib fractures, Fall, Etoh dependence Code Status: Do Not Resuscitate - Medication Management Discharge Medications: Medications to Continue on Transfer C/E/Zn/Cu/OM3/DHA/EPA/LUT/ZEAX [Preservision Areds 2 Softgel] 1 each PO BID [Last Taken Unknown] Metoprolol Tartrate [Lopressor 100 mg (*)] 100 mg PO DAILY 02/20/18 [Last Taken Unknown] Quinapril HCl [Accupril 40 MG] 40 mg PO DAILY 02/20/18 [Last Taken Unknown] Acetaminophen [Tylenol ES 500 mg (*)] 1,000 mg PO Q8H tab 02/22/18 [Last Taken Unknown] Diazepam [Valium 5 MG (*)] 2.5 mg PO HS PRN #20 tab 02/22/18 [Last Taken Unknown ] Folic Acid [Folic Acid 1 MG (*)] 1 mg PO DAILY tab 02/22/18 [Last Taken Unknown ] Thiamine HCl [Vitamin B-1] 100 mg PO DAILY tab 02/22/18 [Last Taken Unknown] oxyCODONE IR [Oxycodone Ir (*)] 5 - 10 mg PO Q6H PRN #30 tab 02/22/18 [Last Taken Unknown] Discharge Medications: Refer to the Discharge Home Medication list for PRN reason. PICC Care - Routine: N/A - Orders Services needed: Registered Nurse, Physical Therapy, Occupational Therapy Diet Recommendation: no restrictions on diet Activity/Weight Bearing Restrictions: Cont sling. NWB to RUE until f/u with ortho. No lifting >2 lbs. - Follow Up Care Current Providers and Referrals: Pierce Peña MD [Medical Doctor] - follow up in 2 weeks (f/u 2 weeks or as needed. no lifting >2 pounds w RUE) Patient,NotPresent [Unknown] - As per Instructions
[2018-02-22] MEDS ORDERED: LACTULOSE 20 GM/30 ML UDCUP PO PRN (12:29)
[2018-02-22] MEDS ORDERED: MAGNESIUM HYDROXIDE 30 ML UDCUP PO PRN (12:29)
[2018-02-22] MEDS ORDERED: BISACODYL 10 MG SUPP PR PRN (12:29)
[2018-02-22] MEDS: SENNOSIDES/DOCUSATE SODIUM TAB PO SCH ×2 (12:48→23:26)
[2018-02-22] MEDS: POLYETHYLENE GLYCOL 3350 17 GM PKT PO PRN ×2 (12:48→18:19)
[2018-02-22] MEDS ORDERED: DIAZEPAM 2 MG TAB PO PRN (13:05)
--- NOTE | 2018-02-22 16:48 | ASMTCMCOM ---
CM Note CM Note Notes: D/c orders in today, orders sent to [facility] in [employer]. D/c has to be delayed as pt did not have a bowel movement by 16:43. Pt likely d/c tomorrow. Date Signed: 02/22/2018 04:47 PM Electronically Signed By:ASHISH Perdomo
--- NOTE | 2018-02-22 16:52 | HOSPPROG ---
Hospitalist Progress Note Assessment/Plan: 82 yo female with h/o etoh abuse admitted with fall and multiple injuries. Humeral head fracture - appreciate ortho consult, no operative intervention planned. -pain control with scheduled tylenol and ibuprofen (add pepcid for gi protection with etoh), prn oxycodone, d/c IV dilaudid -cont ortho splint, NWB, no lifting >2 lbs -cont PT/OT -outpt f/u with ortho in 2 weeks Acute right 4th and 6th rib fractures - seen on CT -IS to improve lung expansion -pain control as above -trauma consulted and signed off today AHRF - likely 2/2 rib fractures, CTA neg for PE. On RA today. Closed head injury - Occurred with fall. Pt repeatedly refused head CT, discussed risks Etoh dependence - sounds like she drinks a large 1.7 L bottle of wine per day and she has no plan to quit drinking -cont wine BID to prevent w/d Hypertension - cont Metoprolol, Quinapril, holding HCTZ Hyponatremia - improved with NS, cont gentle IV hydration, follow -holding HCTZ Hypomagnesemia - replacement protocol ordered Constipation - needs to have BM prior to acceptance at SNF, bowel protocol ordered. -add mag citrate -d/c dilaudid, minimize opiates DVT PPLX - Lovenox Dispo - cont inpt for pain control, acute PT/OT. Planned for dc to SNF but transfer delayed until she has a BM. Subjective: Pt doing much much better today. Up in chair. Pain better controlled. EAting and drinking. No CP or SOB. Objective: Vital Signs Temp Pulse Resp BP Pulse Ox 36.8 C 67 16 155/83 H 97 02/22/18 15:31 02/22/18 15:31 02/22/18 15:31 02/22/18 15:31 02/22/18 15:31 Laboratory Results 02/22/18 05:08 02/21/18 02/22/18 02/23/18 05:59 05:59 05:59 Intake Total 1750 1500 Output Total 700 Balance 1050 1500 PT 13.0 SEC (12.0-15.0) 02/19/18 21:00 INR 0.96 (0.83-1.16) 02/19/18 21:00 - Physical Exam Constitutional: no apparent distress Eyes: PERRL Ears, Nose, Mouth, Throat: moist mucous membranes Cardiovascular: regular rate and rhythym Respiratory: no respiratory distress, clear to auscultation Gastrointestinal: normoactive bowel sounds, soft, non-tender abdomen Skin: warm Musculoskeletal: other (RUE in sling, 2+ radial pulse, ext warm, well perfused) Neurologic: AAOx3 Psychiatric: interacting appropriately ICD10 Worksheet Patient Problems: Problems Problem Status Onset Humerus head fracture Acute Altered mental status Acute Expressive aphasia Acute Hyponatremia Acute Hypertension Chronic Pubic ramus fracture Chronic
[2018-02-22] MEDS ORDERED: MAGNESIUM CITRATE 300 ML BOTTLE PO ONE (17:03)
[2018-02-22] MEDS: LIDOCAINE 4%/MENTHOL 1% PATCH TD SCH (18:19)
[2018-02-22] MEDS: FAMOTIDINE 20 MG TAB PO SCH (18:19)
[2018-02-22] MEDS: PATCH REMOVAL 1 EA PATCH TD SCH (22:36)
[2018-02-23] MEDS: WHITE WINE 120 ML BOTTLE PO SCH ×3 (01:33→18:25)
[2018-02-23] MEDS: IBUPROFEN 600 MG TAB PO SCH ×3 (05:16→21:13)
[2018-02-23] MEDS: LIDOCAINE 4%/MENTHOL 1% PATCH TD SCH (09:59)
[2018-02-23] MEDS: ENOXAPARIN 40 MG/0.4 ML SYR SC SCH (10:00)
[2018-02-23] MEDS: THIAMINE HCL 100 MG TAB PO SCH (10:02)
[2018-02-23] MEDS: LISINOPRIL 20 MG TAB PO SCH (10:02)
[2018-02-23] MEDS: FAMOTIDINE 20 MG TAB PO SCH (10:02)
[2018-02-23] MEDS: FOLIC ACID 1 MG TAB PO SCH (10:02)
[2018-02-23] MEDS: ACETAMINOPHEN 500 MG TAB PO SCH ×3 (10:02→22:45)
[2018-02-23] MEDS: METOPROLOL TARTRATE 100 MG TAB PO SCH (10:03)
[2018-02-23] MEDS: MULTIVITAMINS 1 EACH TAB PO SCH (10:03)
[2018-02-23] MEDS: oxyCODONE IR 5 MG TAB PO PRN ×4 (10:09→21:13)
[2018-02-23] MEDS: SENNOSIDES/DOCUSATE SODIUM TAB PO SCH ×2 (10:11→21:15)
[2018-02-23] MEDS: [UNRECOGNIZED DRUG - OTHER] PO SCH ×2 (11:54→18:19)
[2018-02-23] MEDS: HYDROCHLOROTHIAZIDE 25 MG TAB PO SCH (11:54)
--- NOTE | 2018-02-23 15:16 | HOSPPROG ---
Hospitalist Progress Note Assessment/Plan: 82 yo female with h/o etoh abuse admitted with fall and multiple injuries. # Humeral head fracture - appreciate ortho consult, no operative intervention needed. Continue splint, NWB, no lifting > 2 pounds until f/u with ortho in 2 weeks. Continue pt/ot. Will dc to snf. # Pain : control has been an issue overnight and patient states she had at least 2-3 episodes last night and this am with severe pain leading to screaming for several hours. Will increase dose of oxy and encouraged patient to utilize this more frequently. Will try to get a good regimen in place prior to transfer to snf. # Acute right 4th and 6th rib fractures - seen on personal review of CT. Continue IS, pain control as above. # AHRF - likely 2/2 rib fractures, CTA neg for PE. Resolved and now on RA. # Closed head injury - Occurred with fall. Pt repeatedly refused head CT # Etoh dependence - sounds like she drinks a large 1.7 L bottle of wine per day and she has no plan to quit drinking. No e/o w/d with BID glasses of wine. # Hypertension - cont Metoprolol, Quinapril, had been holding hctz but will resume given LE swelling # chronic venous stasis: BLE with some hyperpigmentation and edema c/w venous stasis. Discussed NAVJOT pereira however she declines at this time. # Hyponatremia - improved with NS, cont gentle IV hydration, follow with addition of HCTZ # Hypomagnesemia - replacement protocol ordered #Constipation - continue bowel protocol DVT PPLX - Lovenox Patient new to my care. Old records reviewed and summarized as above. Further hx obtained from patients daughter present at bedside. Subjective: patient and daughter feel that pain has been worse in last 24 hours , requestion repeat xray Objective: Vital Signs Temp Pulse Resp BP Pulse Ox 36.8 C 82 15 163/90 H 90 L 02/23/18 07:59 02/23/18 07:59 02/23/18 07:59 02/23/18 07:59 02/23/18 07:59 Laboratory Results 02/23/18 05:02 02/22/18 02/23/18 02/24/18 05:59 05:59 05:59 Intake Total 1500 500 Balance 1500 500 PT 13.0 SEC (12.0-15.0) 02/19/18 21:00 INR 0.96 (0.83-1.16) 02/19/18 21:00 awake alert mild distress anicteric op clear rrr no mrg cta b dec at bases soft nt nd no cce rue in sling oriented appropriate - Time Spent With Patient Time Spent with Patient: greater than 35 minutes Time Spent with Patient: Greater than 35 minutes spent on this patients care, greater than 50% of time spent counseling, educating, and coordinating care regarding the above mentioned plan. ICD10 Worksheet Patient Problems: Problems Problem Status Onset Expressive aphasia Acute Altered mental status Acute Hyponatremia Acute Hypertension Chronic Pubic ramus fracture Chronic Humerus head fracture Acute
[2018-02-23] MEDS: PATCH REMOVAL 1 EA PATCH TD SCH (21:15)
[2018-02-24] MEDS ORDERED: POTASSIUM CL 20 MEQ TAB PO ONE (02:07)
[2018-02-24] MEDS: ACETAMINOPHEN 500 MG TAB PO SCH ×3 (05:52→21:26)
[2018-02-24] MEDS: IBUPROFEN 600 MG TAB PO SCH (05:52)
[2018-02-24] MEDS ORDERED: POTASSIUM CL 10 MEQ TAB PO ONE ×2 (09:00→19:28)
[2018-02-24] MEDS: FOLIC ACID 1 MG TAB PO SCH (09:50)
[2018-02-24] MEDS: FAMOTIDINE 20 MG TAB PO SCH (09:50)
[2018-02-24] MEDS: THIAMINE HCL 100 MG TAB PO SCH (09:50)
[2018-02-24] MEDS: SENNOSIDES/DOCUSATE SODIUM TAB PO SCH ×2 (09:54→21:34)
[2018-02-24] MEDS: LISINOPRIL 20 MG TAB PO SCH (09:56)
[2018-02-24] MEDS: HYDROCHLOROTHIAZIDE 25 MG TAB PO SCH (09:56)
[2018-02-24] MEDS: [UNRECOGNIZED DRUG - OTHER] PO SCH ×2 (10:09→21:27)
[2018-02-24] MEDS: ENOXAPARIN 40 MG/0.4 ML SYR SC SCH (10:26)
[2018-02-24] MEDS: LIDOCAINE 4%/MENTHOL 1% PATCH TD SCH (10:27)
[2018-02-24] MEDS: METOPROLOL TARTRATE 50 MG TAB PO SCH ×2 (10:34→21:28)
[2018-02-24] MEDS: WHITE WINE 120 ML BOTTLE PO SCH ×2 (10:35→18:55)
[2018-02-24] MEDS: oxyCODONE IR 5 MG TAB PO PRN ×3 (10:42→21:34)
[2018-02-24] MEDS ORDERED: LISINOPRIL 20 MG TAB PO ONE (11:54)
[2018-02-24] MEDS: METOPROLOL TARTRATE 100 MG TAB PO SCH (13:09)
--- NOTE | 2018-02-24 16:07 | HOSPPROG ---
Hospitalist Progress Note Assessment/Plan: 82 yo female with h/o etoh abuse admitted with fall and multiple injuries. # Humeral head fracture - appreciate ortho consult, no operative intervention needed. Continue splint, NWB, no lifting > 2 pounds until f/u with ortho in 2 weeks. Continue pt/ot. Will dc to snf. # Pain : better controlled today on current regimen, will continue # Acute right 4th and 6th rib fractures - seen on personal review of CT. Continue IS, pain control as above. # AHRF - likely 2/2 rib fractures, CTA neg for PE. Resolved and now on RA. # Closed head injury - Occurred with fall. Pt repeatedly refused head CT # Etoh dependence - sounds like she drinks a large 1.7 L bottle of wine per day and she has no plan to quit drinking. No e/o w/d with BID glasses of wine. # Hypertension - overnight BP more elevated than it has been and remaining elevated all day despite metoprolol, quinapril and hctz. Will increase lisinopril to 40 and monitor to be sure control is improved. # chronic venous stasis: BLE with some hyperpigmentation and edema c/w venous stasis. Discussed NAVJOT kelli however she declines at this time. # Hyponatremia - improved with NS, cont gentle IV hydration, follow with addition of HCTZ # Hypomagnesemia - replacement protocol ordered #Constipation - continue bowel protocol DVT PPLX - Lovenox Patient new to my care. Old records reviewed and summarized as above. Further hx obtained from patients daughter present at bedside. Subjective: overnight BP has been elevated, patient very worried about it Objective: Vital Signs Temp Pulse Resp BP Pulse Ox 37.4 C 72 16 136/76 H 100 02/24/18 15:49 02/24/18 15:49 02/24/18 15:49 02/24/18 15:49 02/24/18 15:49 Laboratory Results 02/24/18 04:42 02/23/18 02/24/18 02/25/18 05:59 05:59 05:59 Intake Total 500 240 Balance 500 240 PT 13.0 SEC (12.0-15.0) 02/19/18 21:00 INR 0.96 (0.83-1.16) 02/19/18 21:00 awake alert mild distress anicteric op clear rrr no mrg cta b dec at bases soft nt nd no cce rue in sling oriented appropriate - Time Spent With Patient Time Spent with Patient: greater than 35 minutes Time Spent with Patient: Greater than 35 minutes spent on this patients care, greater than 50% of time spent counseling, educating, and coordinating care regarding the above mentioned plan. ICD10 Worksheet Patient Problems: Problems Problem Status Onset Humerus head fracture Acute Altered mental status Acute Expressive aphasia Acute Hyponatremia Acute Hypertension Chronic Pubic ramus fracture Chronic
--- NOTE | 2018-02-24 16:09 | ASMTCMCOM ---
CM Note CM Note Notes: Pt has had pain control issues. Plan remains d/c to [facility] when medically stable. Date Signed: 02/24/2018 04:09 PM Electronically Signed By:ASHISH Perdomo
[2018-02-24] MEDS: MAGNESIUM OXIDE 400 MG TAB PO SCH ×2 (16:52→23:50)
[2018-02-24] MEDS: PATCH REMOVAL 1 EA PATCH TD SCH (21:32)
[2018-02-25] MEDS: oxyCODONE IR 5 MG TAB PO PRN ×3 (01:32→12:57)
[2018-02-25] MEDS: ACETAMINOPHEN 500 MG TAB PO SCH (06:02)
[2018-02-25 07:53] VITALS: BP 127/66
[2018-02-25] MEDS ORDERED: LISINOPRIL 20 MG TAB PO SCH (09:00)
[2018-02-25] MEDS: POTASSIUM CL 10 MEQ TAB PO ONE ×2 (09:57→10:08)
[2018-02-25] MEDS: [UNRECOGNIZED DRUG - OTHER] PO SCH (09:58)
[2018-02-25] MEDS: ENOXAPARIN 40 MG/0.4 ML SYR SC SCH (09:59)
[2018-02-25] MEDS: FAMOTIDINE 20 MG TAB PO SCH (09:59)
[2018-02-25] MEDS: HYDROCHLOROTHIAZIDE 25 MG TAB PO SCH (10:00)
[2018-02-25] MEDS: FOLIC ACID 1 MG TAB PO SCH (10:00)
[2018-02-25] MEDS ORDERED: POTASSIUM CL 10 MEQ TAB PO ONE (10:00)
[2018-02-25] MEDS: LIDOCAINE 4%/MENTHOL 1% PATCH TD SCH (10:01)
[2018-02-25] MEDS: METOPROLOL TARTRATE 50 MG TAB PO SCH (10:02)
[2018-02-25] MEDS: THIAMINE HCL 100 MG TAB PO SCH (10:02)
[2018-02-25] MEDS: POLYETHYLENE GLYCOL 3350 17 GM PKT PO PRN (10:05)
[2018-02-25] MEDS: SENNOSIDES/DOCUSATE SODIUM TAB PO SCH (10:06)
[2018-02-25] MEDS: WHITE WINE 120 ML BOTTLE PO SCH (10:55)
--- NOTE | 2018-02-25 11:27 | PDDCSUM ---
Discharge Summary Discharge Summary: DAtes of service 02/20-02/25/18 Consultations:ortho, general surgery Procedures: cTA chest, echo Hospital course by problem: 82 yo female with h/o etoh abuse admitted with fall and multiple injuries. # Humeral head fracture - appreciate ortho consult, no operative intervention needed. Continue splint, NWB, no lifting > 2 pounds until f/u with ortho in 2 weeks. Continue pt/ot. Will dc to snf. # Pain : better controlled today on current regimen, will continue # Acute right 4th and 6th rib fractures - seen on personal review of CT. Continue IS, pain control as above. # AHRF - likely 2/2 rib fractures, CTA neg for PE. Resolved and now on RA. # Closed head injury - Occurred with fall. Pt repeatedly refused head CT # Etoh dependence - sounds like she drinks a large 1.7 L bottle of wine per day and she has no plan to quit drinking. No e/o w/d with BID glasses of wine. # Hypertension - overnight BP more elevated than it has been and remaining elevated all day despite metoprolol, quinapril and hctz. Will increase lisinopril to 40 and monitor to be sure control is improved. # chronic venous stasis: BLE with some hyperpigmentation and edema c/w venous stasis. Discussed NAVJOT kelli however she declines at this time. # Hyponatremia - improved with NS, cont gentle IV hydration, follow with addition of HCTZ # Hypomagnesemia - replacement protocol ordered #Constipation - continue bowel protocol Items for f/u: repeat eval humeral fracture per ortho, ongoing BP management DC to snf f/u with ortho/PCP > 35 min spent in dc more than half in coordination of care
--- NOTE | 2018-02-25 11:51 | PDIAF ---
- Diagnosis Diagnosis: Humerus fracture, rib fractures, Fall, Etoh dependence Code Status: Do Not Resuscitate - Medication Management Discharge Medications: Medications to Continue on Transfer C/E/Zn/Cu/OM3/DHA/EPA/LUT/ZEAX [Preservision Areds 2 Softgel] 1 each PO BID [Last Taken Unknown] Quinapril HCl [Accupril 40 MG] 40 mg PO DAILY 02/20/18 [Last Taken Unknown] Acetaminophen [Tylenol ES 500 mg (*)] 1,000 mg PO Q8H tab 02/22/18 [Last Taken Unknown] Diazepam [Valium 5 MG (*)] 2.5 mg PO HS PRN #20 tab 02/22/18 [Last Taken Unknown ] Folic Acid [Folic Acid 1 MG (*)] 1 mg PO DAILY tab 02/22/18 [Last Taken Unknown ] Thiamine HCl [Vitamin B-1] 100 mg PO DAILY tab 02/22/18 [Last Taken Unknown] Hydrochlorothiazide [HCTZ (*)] 25 mg PO DAILY tab 02/25/18 [Last Taken Unknown] Lidocaine 4%/Menthol 1% [Icy Hot Lidocaine/Menthol 4%/1% Patch (*)] 1 patch TD DAILY patch 02/25/18 [Last Taken Unknown] Metoprolol Tartrate [Lopressor 50 mg (*)] 50 mg PO BID #0 tab 02/25/18 [Last Taken Unknown] Patch Removal 1 ea TD DAILY21 patch 02/25/18 [Last Taken Unknown] Polyethylene Glycol 3350 [Miralax 17 gm (*)] 17 gm PO DAILY PRN pkt 02/25/18 [ Last Taken Unknown] Sennosides/Docusate Sodium [Senokot-S] 1 - 2 tab PO BID tab 02/25/18 [Last Taken Unknown] oxyCODONE IR [Oxycodone Ir (*)] 5 - 10 mg PO Q3H PRN tab 02/25/18 [Last Taken Unknown] Discharge Medications: Refer to the Discharge Home Medication list for PRN reason. PICC Care - Routine: N/A - Orders Services needed: Registered Nurse, Physical Therapy, Occupational Therapy Diet Recommendation: no restrictions on diet Activity/Weight Bearing Restrictions: Cont sling. NWB to RUE until f/u with ortho. No lifting >2 lbs. Additional Instructions: Keep your arm in the sling until you follow up with the orthopedist doctor. Do not lift anything with that arm that is over 2 pounds. Wine should be provided, 120ml BID-TID. - Follow Up Care Current Providers and Referrals: Pierce Peña MD [Medical Doctor] - follow up in 2 weeks (f/u 2 weeks or as needed. no lifting >2 pounds w RUE) Patient,NotPresent [Unknown] - As per Instructions
== END 2018-02-25 13:40 | DRG 562 ==
LOC: EDUNIT# → OBSVTOIN 22:56 → INTOOBSV 22:56 → UNDOADMIN 22:56 → F3N 02-20 00:10 → UNDODISIN 02-25 13:40
PROVIDERS: ADMIT Family Medicine; ATTEND Internal Medicine
DX: S42.291A Other displaced fracture of upper end of right humerus, initial encounter for closed fracture (principal); S42.214A Unspecified nondisplaced fracture of surgical neck of right humerus, initial encounter for closed fracture; S00.81XA Abrasion of other part of head, initial encounter; S22.41XA Multiple fractures of ribs, right side, initial encounter for closed fracture; W10.8XXA Fall (on) (from) other stairs and steps, initial encounter; Y92.018 Other place in single-family (private) house as the place of occurrence of the external cause; Y99.8 Other external cause status; J96.01 Acute respiratory failure with hypoxia; E87.1 Hypo-osmolality and hyponatremia; E83.42 Hypomagnesemia; F10.220 Alcohol dependence with intoxication, uncomplicated; Y90.6 Blood alcohol level of 120-199 mg/100 ml; R60.0 Localized edema; K57.30 Diverticulosis of large intestine without perforation or abscess without bleeding; H35.30 Unspecified macular degeneration; E66.09 Other obesity due to excess calories; Z68.34 Body mass index [BMI] 34.0-34.9, adult
CPT/HCPCS: 92523-GN; 96374; 97116-GP; 97162-GP; 97166-GO; 97530-GP; 97535-GO; A4565; G0378; G0480; G8978-GP-CK; G8979-GP-CI; G8987-GO-CK; G8988-GO-CI; G9165-GN-CI; G9166-GN-CI; G9167-GN-CI; J1170; J1650; J3475; J3480; Q9967